=== PATIENT | female | born 1965 | race Caucasian/White ===

== ENCOUNTER → 2020-05-14 11:22 | Outpatient (CLI) | payer OTHER, SELFPAY ==
--- NOTE | 2020-05-14 11:23 | NM_ITS ---
APPROVED REPORT Exam: Nuclear Stress Test Indication: CHEST PAIN..FATIGUE Patient Location: Outpatient Stress Tech: Huma Singleton NE Tech:LUDIVINA Danielle RT(R)(N) Ht: 5 ft 1 in Wt: 153 lbs Bra Size: 36 d HR: 67 bpm BP: 120/84 mmHg BSA: 1.69 m2 BMI: 28.9 History: CHEST PAIN..FATIGUE Procedure: Patient received a 0.4 mg of intravenous Lexiscan, resting heart rate 67 bpm, resting blood pressure 120/84 mmHg, with Lexiscan maximum heart rate achived was 105 bpm which is Less than 85 % of the maximum predicted heart rate and blood pressure was 120/78 mmHg. With Lexiscan, patient denied any complaint of chest pain. Electrocardiogram Resting electrocardiogram showed sinus rhythm, with Lexiscan there is less than 1.[address] segment depression noted from the baseline EKG. The EKG portion of the Lexiscan Myoview is nondiagnostic. Cardiac Stress and Resting SPECT Images: Cardiac Stress and Resting SPECT images were obtained using technetium 99m Myoview 30.1 mCi stress and 10.91 mCi at rest. Gated SPECT for the analysis of segmental wall motion and calculation of the ejection fraction also done. Cardiac stress and resting SPECT may show mild fixed defect in the inferior wall with normal contractility to SPECT is likely secondary to soft tissue attenuation, no reversible ischemia seen. Computer derived ejection fraction is over 65% with no regional wall motion abnormality, right ventricle is normal size and contractility. Conclusion: 1. The EKG portion of the Lexiscan Myoview is nondiagnostic. 2. No scintigraphic evidence of reversible ischemia seen, computer derived ejection fraction is over 65% with no regional wall motion abnormality, right ventricle is normal size and contractility 3. Likely normal Lexiscan Myoview study. Electronically signed by : Kennedy Javier, 05/14/2020 22:46:55
--- NOTE | 2020-05-14 11:23 | CA_ITS ---
APPROVED REPORT Exam: Pharmacologic Technologist: Huma Singleton Ht: 5 ft 1 in Wt: 153 lbs BSA: 1.69 m2 HR: 67 bpm BP: 120/84 mmHg Indications: Shortness of Breath, BRADEN Medical History Medications: Lisinopril,,,,, Omeprazole,,,,, Alprazolam,,,,, Levothyroxine,,,,, Pantoprazole,,,,, Atorvastatin,,,,, Temazepam,,,,, Citalopram,,,,, Ropinirole,,,,, TopIRAMATE,,,,, CetIRIZINE,,,,, Potassium,,,,, Stress Test Details Test: LEXISCAN HR Resting HR: 66 bpm Max Heart Rate (APMHR): 164 bpm Max HR Achieved: 107 bpm Target HR (85% APMHR): 139 bpm % of APMHR: 65 Recovery HR: 82 bpm BP Resting BP: 120.0/84.0 mmHg Max BP: 120.0/84.0 mmHg Recovery BP: 120.0/84.0 mmHg ECG Clinical Reason for Termination: Completed Protocol Exercise duration: 04:00 min Highest Stage Achieved: Stress ECG Conclusion Resting ECG: Normal sinus rhythm Symptoms: None Arrhythmias/Ectopy: None ST-T Changes: < 1.[address] segment changes. Conclusion: Non-diagnostic lexiscan stress test. Patient received the infusion per protocol without chest pain, ST segment changes or arrhythmias. See the nuclear report for further information. Test Summary RECOVERY 03:19 . . 80 . 117/ 81 . . REST 12:13 . . 66 . 120/ 84 . . Stage 1 . . . . . . . Myoview Injected Stage 1 01:00 . . 100 . . . . Stage 2 01:00 . . 104 . 120/ 78 . . Stage 3 01:00 . . 96 . 116/ 75 . . Stage 4 01:00 . . 91 . 106/ 73 . Stop exercise at 04:00 RECOVERY 01:00 . . 94 . . . . RECOVERY 02:00 . . 91 . 118/ 75 . . RECOVERY 03:00 . . 82 . 118/ 75 . . RECOVERY 03:19 . . 80 . 117/ 81 . . Electronically signed by : Kennedy Javier 05/14/2020 22:42:45
--- NOTE | 2020-05-14 11:23 | CA_ITS ---
APPROVED REPORT Head Inspector: Connie Palmer RVT Laterality: Bilateral Study Quality: Excellent Indications: Carotid stenosis Risk Factors Hypertension: Doppler Spectral Velocity Analysis ECA (R) 62.60/20.10 cm/s ECA (L) 62.30/11.90 cm/s dICA (R) 75.50/32.90 cm/s dICA (L) 74.50/34.40 cm/s Sara (R) 72.40/33.30 cm/s Sara (L) 59.00/22.90 cm/s pICA (R) 45.30/21.30 cm/s pICA (L) 69.70/28.00 cm/s dCCA (R) 60.90/23.50 cm/s dCCA (L) 57.80/21.20 cm/s pCCA (R) 95.20/29.90 cm/s pCCA (L) 80.70/24.20 cm/s Vert (R) 39.70/17.20 cm/s Vert (L) 31.20/12.30 cm/s ICA/CCA 1.24 ICA/CCA 1.29 Findings Study suggests less than 20% stenosis of the right internal cartoid artery. Study suggests less than 20% stenosis of the left internal cartoid artery. Antegrade flow seen bilateral vertebral arteries. Conclusion No increased velocities to suggest hemodynamically significant stenosis in either internal carotid artery. Electronically signed by : Garrett Matute MD 05/14/2020 16:16:25
--- NOTE | 2020-05-14 14:17 | HMH.ITSHM ---
Current Home Medications as stated by this patient Jing Mederos or public relations representative. [] allopruinal asa atorvastatin clopidgrel
== END ==
PROVIDERS: PCP Family Medicine; Visit Provider Urology
DX: R06.00 Dyspnea, unspecified (principal); R07.9 Chest pain, unspecified; R00.2 Palpitations; I07.1 Rheumatic tricuspid insufficiency; I34.1 Nonrheumatic mitral (valve) prolapse; I65.29 Occlusion and stenosis of unspecified carotid artery
CPT/HCPCS: 78452; 93017; 93880; A9502; J2785

== ENCOUNTER → 2020-05-21 09:57 | Outpatient (CLI) | payer OTHER, SELFPAY ==
--- NOTE | 2020-05-21 10:02 | CA_ITS ---
APPROVED REPORT Bilateral Lower Extremity Venous Study for DVT. Semiautomatic Stitcher Operator: ROXIE AlT Indications Lower Extremity Pain: Right Lower Extremity Edema: Bilateral Shortness of breath RT FOOT PAIN, RAFAELA LE EDEMA Vein Imaging CFV (R): compressive, spontaneous, phasic, augmentation FEM (R): compressive, spontaneous, phasic, augmentation POP (R): compressive, spontaneous, phasic, augmentation PTV (R): Compressible GSV (R): Compressible Peroneals (R):Compressible GAS (R): Compressible CFV (L): compressive, spontaneous, phasic, augmentation FEM (L): compressive, spontaneous, phasic, augmentation POP (L): compressive, spontaneous, phasic, augmentation PTV (L): Compressible GSV (L): Compressible Peroneals (L):Compressible GAS (L): Compressible Findings Study suggests no evidence of DVT of the bilateral lower extremities. Study suggests no evidence of SVT of the bilateral lower extremities. Conclusion Study suggests no evidence of DVT of the bilateral lower extremities. Study suggests no evidence of SVT of the bilateral lower extremities. Electronically signed by : Lizette Helton, 05/24/2020 08:51:40
== END ==
PROVIDERS: PCP Family Medicine; Visit Provider Family Medicine
DX: R60.0 Localized edema (principal)
CPT/HCPCS: 93970